=== PATIENT | male | born 2000 | race Caucasian/White ===

== ENCOUNTER 2018-08-30 16:16 | Emergency (ER) | payer OTHER ==
[~2018-08-30] VITALS: Ht 180.3 cm; Wt 71.5 kg
[2018-08-30] MEDS ORDERED: SULF1TAB24 PO (16:52)
[2018-08-30] MEDS: LIDOCAINE 1% Multi-Dose 20 ML VIAL. IJ ONE (17:00)
--- NOTE | 2018-08-30 17:01 | PHYS DOC ---
Past History Past Medical History: Other Past Surgical History: No Surgical History Alcohol Use: Occasionally Drug Use: None Adult General Chief Complaint Chief Complaint: SKIN PROBLEM HPI HPI 17 yo male presents with 3 day history of left arm cellulitis. The patient thought he had an ingrown hair on his left upper arm. He attempted to open it with a needle and drain it. He now has a tooth in her right 3 cm erythematous abscess with 7 cm x 6 cm surrounding cellulitis. Patient states it is very tender to the touch. He denies fever or chills. He denies any other abscesses or concerns. Review of Systems Review of Systems Constitutional: Denies fever or chills [] Eyes: Denies change in visual acuity, redness, or eye pain [] HENT: Denies nasal congestion or sore throat [] Respiratory: Denies cough or shortness of breath [] Cardiovascular: No additional information not addressed in HPI [] GI: Denies abdominal pain, nausea, vomiting, bloody stools or diarrhea [] : Denies dysuria or hematuria [] Musculoskeletal: Denies back pain or joint pain [] Integument: Left arm abscess[] Neurologic: Denies headache, focal weakness or sensory changes [] Endocrine: Denies polyuria or polydipsia [] All other systems were reviewed and found to be within normal limits, except as documented in this note. Current Medications Current Medications Current Medications Medications (Trade) Dose Ordered Sig/Babatunde Start Time Stop Time Status Last Admin Dose Admin Lidocaine HCl 20 ml 1X ONCE 08/30/18 17:00 08/30/18 17:01 Trimethoprim/ Sulfamethoxazole (Bactrim Ds) 2 tab 1X ONCE 08/30/18 17:15 08/30/18 17:16 Allergies Allergies Allergies Coded Allergies Type Severity Reaction Last Updated Verified No Known Drug Allergies 08/30/18 No Physical Exam Physical Exam Constitutional: Well developed, well nourished, no acute distress, non-toxic appearance. [] HENT: Normocephalic, atraumatic, bilateral external ears normal, oropharynx moist, no oral exudates, nose normal. [] Eyes: PERRLA, EOMI, conjunctiva normal, no discharge. [] Neck: Normal range of motion, no tenderness, supple, no stridor. [] Cardiovascular:Heart rate regular rhythm, no murmur [] Lungs & Thorax: Bilateral breath sounds clear to auscultation [] Abdomen: Bowel sounds normal, soft, no tenderness, no masses, no pulsatile masses. [] Skin: 2 cm x 3 cm abscess of the left upper arm. There is 4 cm x 6 cm surrounding warm erythematous skin consistent with cellulitis[] Back: No tenderness, no CVA tenderness. [] Extremities: No tenderness, no cyanosis, no clubbing, ROM intact, no edema. [] Neurologic: Alert and oriented X 3, normal motor function, normal sensory function, no focal deficits noted. [] Psychologic: Affect normal, judgement normal, mood normal. [] Current Patient Data Vital Signs Vital Signs Date Time Temp Pulse Resp B/P (MAP) Pulse Ox O2 Delivery O2 Flow Rate FiO2 08/30/18 16:16 98.3 81 18 98 Room Air EKG EKG [] Radiology/Procedures Radiology/Procedures [] Course & Med Decision Making Course & Med Decision Making Pertinent Labs and Imaging studies reviewed. (See chart for details) The patient had a fluctuant area consistent with abscess with surrounding cellulitis. I did perform an I&D. See below for further details. I give the patient Bactrim DS 2 tabs by mouth in the ED. I also gave him a prescription for 1 tab by mouth twice a day for 7 days. He is stable for discharge at this time. [] Dragon Disclaimer Dragon Disclaimer This electronic medical record was generated, in whole or in part, using a voice recognition dictation system. Incision and Drainage Indication: 2 cm x 3 cm abscess of the left upper arm. Procedure: The patient was positioned appropriately and the skin over the incision site was wrapped with alcohol solution. Local anesthesia was 1 mL 1% lidocaine without epinephrine.. An incision was then made with a #11 blade. Purulent material was expressed. A culture was performed. Loculations were broken up with a sterile Q-tip. The drainage cavity was then covered with a clean dressing. No packing was used.. The patients tetanus status is up-to- date. The patient tolerated the procedure well. Complications: None. Departure Departure: Impression: Primary Impression: Cellulitis and abscess of upper arm and forearm Disposition: HOME, SELF-CARE Condition: STABLE Patient Instructions: Abscess, Care After Scripts Sulfamethoxazole/Trimethoprim (BACTRIM DS TABLET) 1 Each Tablet 1 TAB PO BID for infection, #14 TAB Prov: GAMALIEL RAYA DO 08/30/18 GAMALIEL RAYA DO Aug 30, 2018 17:01
[2018-08-30] MEDS: SMZ/TMP 800/160MG TABLET. PO ONE (17:02)
[2018-08-30 17:03] VITALS: BP 129/71
== END 2018-08-30 17:03 | disposition home or self-care (01) ==
LOC: ER 16:16
DX: L03.114 Cellulitis of left upper limb (principal); L02.414 Cutaneous abscess of left upper limb
CPT/HCPCS: 10060; 87070; 99283

== ENCOUNTER 2019-01-13 09:07 | Emergency (ER) | payer OTHER ==
[~2019-01-13] VITALS: Ht 180.3 cm; Wt 72.6 kg
[~2019-01-13 09:07] MED LIST: SULF1TAB24 PO
[2019-01-13 09:28] VITALS: BP 137/77
[2019-01-13] MEDS ORDERED: DOXY100T PO (09:30)
[2019-01-13] MEDS ORDERED: IBUP800T19 PO (09:30)
--- NOTE | 2019-01-13 09:30 | PHYS DOC ---
Past History Past Medical History: No Pertinent History, Other Past Surgical History: No Surgical History Smoking: Non-smoker Alcohol Use: Occasionally Drug Use: None Adult General Chief Complaint Chief Complaint: FINGER INJURY HPI HPI Patient is a 78-year-old male presents with right index finger and thumb infection. Patient was flying a kite 2 days ago, thought it would be fund flat out of the car window when it got caught in a tree, with the string of the kite wrapped around his finger. Patient noted some redness yesterday that has gotten worse over time. Index finger is worse than the thumb. No numbness or tingling. No fever. Patient is right-hand dominant. Patient reports that his last tetanus shot was approximately 5 years ago while in high school, no other pertinent medical history.[] Review of Systems Review of Systems Constitutional: Denies fever or chills [] Eyes: Denies change in visual acuity, redness, or eye pain [] HENT: Denies nasal congestion or sore throat [] Respiratory: Denies cough or shortness of breath [] Cardiovascular: No chest pain or palpitations[] GI: Denies abdominal pain, nausea, vomiting, bloody stools or diarrhea [] : Denies dysuria or hematuria [] Musculoskeletal: Denies back pain or joint pain [] Integument: See history of present illness[] Neurologic: Denies headache, focal weakness or sensory changes [] Endocrine: Denies polyuria or polydipsia [] All other systems were reviewed and found to be within normal limits, except as documented in this note. Allergies Allergies Allergies Coded Allergies Type Severity Reaction Last Updated Verified No Known Drug Allergies 08/30/18 No Physical Exam Physical Exam Constitutional: Well developed, well nourished, no acute distress, non-toxic appearance. [] HENT: Normocephalic, atraumatic, bilateral external ears normal, oropharynx moist, no oral exudates, nose normal. [] Eyes: PERRLA, EOMI, conjunctiva normal, no discharge. [] Neck: Normal range of motion, no tenderness, supple, no stridor. [] Cardiovascular:Heart rate regular rhythm, no murmur [] Lungs & Thorax: Bilateral breath sounds clear to auscultation [] Abdomen: Not examined[] Skin: Warm, dry, no erythema, no rash. [] Back: No tenderness, no CVA tenderness. [] Extremities: Right index finger has deep abrasions around the middle phalanx and the PIP joint, no gapping of these abrasions. Dictating a suturable wound. There is erythema diffusely on the finger. There is no fusiform swelling. Patient has full active range of motion. FDS, FDP, and extensor mechanisms are all intact. Patient's right thumb has a similar abrasion with local erythema along the proximal phalanx. Full range of motion. Distally neurovascularly intact. Knee third digit has any increased pain with axial loading. Aside from these 2 fingers there is no tenderness, no cyanosis, no clubbing, ROM intact, no edema. [] Neurologic: Alert and oriented X 3, normal motor function, normal sensory function, no focal deficits noted. [] Psychologic: Affect normal, judgement normal, mood normal. [] EKG EKG [] Radiology/Procedures Radiology/Procedures [] Course & Med Decision Making Course & Med Decision Making Pertinent Labs and Imaging studies reviewed. (See chart for details) Medical decision making: Patient appears to have a local infection in his right thumb and index finger with these abrasions. There is no suturable wound present and would not suture in the face of infection. No evidence of neuro or vascular compromise. No evidence of this being an open fracture. No evidence of flexor tenosynovitis. Will start patient on oral outpatient antibiotics. No evidence of need for updating of patient's tetanus status at this time.[] Dragon Disclaimer Dragon Disclaimer This electronic medical record was generated, in whole or in part, using a voice recognition dictation system. Departure Departure: Impression: Primary Impression: Abrasion of left index finger with infection Additional Impression: Abrasion of thumb, infected Disposition: HOME, SELF-CARE Condition: IMPROVED Referrals: JACOB ARCINIEGA (PCP) Follow-up in 2 days for a wound check Patient Instructions: Abrasions, Cellulitis Additional Instructions: Keep the wounds clean and dry. No swimming, hot tubbing, or rafting. You may wash with soap and water. Do not apply alcohol or hydration peroxide because that will harm the cells that are trying to heal the wound and infection. Take the medications as prescribed. Follow-up with your regular doctor in 2 days for a wound check. Return to the ER if worsening redness, you develop a fever of more than 101, or any other concerns. Scripts Ibuprofen (IBUPROFEN) 800 Mg Tablet 1 TAB PO TID for pain or fever, #30 TAB Prov: MARCO WATERS DO 01/13/19 Doxycycline Hyclate (DOXYCYCLINE HYCLATE) 100 Mg Tablet 1 TAB PO BID for infection, #20 TAB Prov: MARCO WATERS DO 01/13/19 Problem Qualifiers Additional Impression: Abrasion of thumb, infected Encounter type: initial encounter Laterality: right Qualified Codes: S60.311A - Abrasion of right thumb, initial encounter; L08.9 - Local infection of the skin and subcutaneous tissue, unspecified MARCO WATERS DO Jan 13, 2019 09:30
== END 2019-01-13 09:39 | disposition home or self-care (01) ==
LOC: ER 09:07
DX: S60.411A Abrasion of left index finger, initial encounter (principal); S60.312A Abrasion of left thumb, initial encounter; L08.9 Local infection of the skin and subcutaneous tissue, unspecified; W23.0XXA Caught, crushed, jammed, or pinched between moving objects, initial encounter; Y93.89 Activity, other specified; Y92.89 Other specified places as the place of occurrence of the external cause; Y99.8 Other external cause status
CPT/HCPCS: 99283